=== PATIENT | male | born 1995 | race Two or more races ===

== ENCOUNTER 2017-01-15 10:17 | Emergency (ER) | payer OTHER ==
--- NOTE | 2017-01-15 11:16 | RAD ---
HISTORY: Fall, loss of consciousness, photophobia, hematoma COMPARISONS: None TECHNIQUE: Multiple contiguous axial CT scans were obtained of the head without intravenous contrast. FINDINGS: HEMORRHAGE/INFARCT: There is no hemorrhage or acute infarct. MASSES/SHIFT: There is no mass or shift. EXTRA-AXIAL SPACES: There are no extra-axial fluid collections. SULCI AND VENTRICLES: The sulci and ventricles are normal in size and position for the patient's stated age. CEREBRUM: There are no focal parenchymal abnormalities. BRAINSTEM: There are no focal parenchymal abnormalities. CEREBELLUM: There are no focal parenchymal abnormalities. VESSELS: The vessels are grossly normal. PARANASAL SINUSES: The paranasal sinuses are clear. ORBITS: The orbits are unremarkable. BONES AND SOFT TISSUE: No bone or soft tissue abnormalities are noted. OTHER: None IMPRESSION: NO ACUTE INTRACRANIAL PATHOLOGY.
[2017-01-15] MEDS ORDERED: Ondansetron ODT TAB* 4 MG PO ONE (11:41)
[2017-01-15] MEDS ORDERED: Acetaminophen TAB* 325 MG PO ONE (11:41)
--- NOTE | 2017-01-15 11:47 | ED ---
Head Injury - HPI Summary HPI Summary: Pt here w/ head injury - fell yesterday. Was still sleepy and got up to go to the bathroom - slipped on the floor and fell. Believes he lost concsciousness and he "woke up" and noticed his glasses were away from him on the floor. He noticed a bump on Rt side of SOLIS and developed a SOLIS w/ nausea. Laid down to rest which helped some but noticed the sound of the heater was making his SOLIS worse. Since, he's had SOLIS, worse w/ chewing, sound, light and trying to concentrate on reading. Nausea persists as well and is worse when SOLIS is worse. Vomited once yesterday. Also reports he's not sleeping well and has a labile mood -feels depressed and cries out of no where. He has a busy week coming up for school and is concerned about studying, etc. Denies slurred speech, numbness, tingling , weakness, balance issue. - History Of Current Complaint Chief Complaint: EDHeadInjury Stated Complaint: FALL HIT HEAD YESTERDAY Time Seen by Provider: 01/15/17 10:56 Hx Obtained From: Patient Pain Intensity: 6 PMH/Surg Hx/FS Hx/Imm Hx Previously Healthy: Yes Endocrine/Hematology History: Denies: Hx Anticoagulant Therapy, Hx Blood Disorders Infectious Disease History: No Infectious Disease History: Denies: Traveled Outside the [place] in Last 30 Days - Social History Occupation: Student Lives: Alone Alcohol Use: Occasionally Hx Substance Use: No Substance Use Type: Reports: None Hx Tobacco Use: Yes Smoking Status (MU): Current Every Day Smoker Amount Used/How Often: 1 PPD Review of Systems Negative: Fever, Chills, Fatigue Positive: Photophobia. Negative: Blurred Vision, Diplopia Negative: Epistaxis, Sore Throat, Ear Ache, Nasal Discharge Negative: Chest Pain Negative: Shortness Of Breath Gastrointestinal: Other - see HPI Positive: Vomiting, Nausea. Negative: Abdominal Pain, Diarrhea Positive: no symptoms reported Negative: Arthralgia, Myalgia Skin: Other - hematoma Rt side of head Positive: Headache - see HPI Psychological: Other - see HPI All Other Systems Reviewed And Are Negative: Yes Physical Exam Triage Information Reviewed: Yes Vital Signs On Initial Exam: Initial Vitals Temp Pulse Resp BP Pulse Ox 98.0 F 83 18 145/82 100 01/15/17 10:23 01/15/17 10:23 01/15/17 10:23 01/15/17 10:23 01/15/17 10:23 Vital Signs Reviewed: Yes Appearance: Positive: Well-Appearing - tearful toward end of exam, Well- Nourished, Pain Distress - mild Skin: Positive: Warm, Dry - well defined lump Rt parietal region - TTP - no overlying erythema, echymosis - no laceration Head/Face: Positive: Other - see above Eyes: Positive: Normal, EOMI, AMANDA - photophobia, Conjunctiva Clear ENT: Positive: Normal ENT inspection, Hearing grossly normal, Pharynx normal, TMs normal - no hemotympanum. Negative: Nasal congestion, Nasal drainage Dental: Negative: Dental Fracture @ Neck: Positive: Supple, Nontender Respiratory/Lung Sounds: Positive: Clear to Auscultation, Breath Sounds Present Cardiovascular: Positive: Normal, RRR, Pulses are Symmetrical in both Upper and Lower Extremities Abdomen Description: Positive: Nontender, Soft Bowel Sounds: Positive: Present Musculoskeletal: Positive: Normal, Strength/ROM Intact Neurological: Positive: Normal, Sensory/Motor Intact, Alert, Oriented to Person Place, Time, CN Intact II-III, Finger to Nose, Facial Symmetry, Speech Normal. Negative: Slurred Speech, Pronator Drift Present Psychiatric: Positive: Other - labile mood - [place] Coma Scale Coma Scale Total: 15 Diagnostics - Vital Signs Vital Signs Temp Pulse Resp BP Pulse Ox 01/15/17 10:47 98 F 83 18 145/82 98 01/15/17 10:23 98.0 F 83 18 145/82 100 - Laboratory Lab Statement: Any lab studies that have been ordered have been reviewed, and results considered in the medical decision making process. Head Injury Course/Dx - Diagnoses Provider Diagnoses: Concussion Discharge - Discharge Plan Condition: Stable Disposition: HOME Prescriptions: Ondansetron ODT TAB* [Zofran 4 MG Odt TAB*] 4 mg PO Q8H PRN #9 tab.odt PRN Reason: Nausea Patient Education Materials: Concussion (ED) Referrals: [facility] RHONDA Chowdhury [Primary Care Provider] - Additional Instructions: You have a concussion. It is important that you rest and avoid cognitive (ie. reading, looking at computers screens, focusing on tasks, etc) and physical activity (ie. exercise, etc) until this heals. Follow-up with [facility] tomorrow for monitoring schedule and return to routine activities when appropriate and cleared by [facility] provider.
[2017-01-15 11:50] VITALS: BP 158/72
== END 2017-01-15 11:48 | disposition home or self-care (01) ==
LOC: ED 10:17
DX: S06.0X9A Concussion with loss of consciousness of unspecified duration, initial encounter (principal); W01.0XXA Fall on same level from slipping, tripping and stumbling without subsequent striking against object, initial encounter; Y92.9 Unspecified place or not applicable; F17.210 Nicotine dependence, cigarettes, uncomplicated
CPT/HCPCS: 70450; 99282; A9270-GY

== ENCOUNTER → 2019-01-15 15:45 | Emergency (ER) | payer OTHER ==
[~2019-01-15 15:45] MED LIST: Cyanocobalamin INJ * 1,000 MCG/ML VIAL 1 ML VIAL IM ONE; Gadoteridol* (CONTRAST) 279.3 MG/ML 10 ML IV ONE
--- NOTE | 2019-01-15 16:30 | ED ---
Neurological HPI - HPI Summary HPI Summary: A 23 y/o male brought in by [facility] ambulance presents to [facility] with a chief complaint of numbness in his hands and feet, getting progressively worse over the past week. He claims that the numbness is on the surface of his hands and does not go up his arms, but numbness in his feet goes up his legs. He denies cough, pain in neck or headache. He reports that he had some congestion earlier in the week. At triage he rated his pain as a 0/10 in severity. He also notes that he feels like he can fall down when he stands up and loses his balance when walking. He claims that typing and writing feels weird. He denies any PMHx , SHx or taking any medications. He notes that he travelled to [facility] for a week in the beginning of December. - History of Current Complaint Chief Complaint: EDNeurologicalDeficit Stated Complaint: NUMBNESS IN EXTEMITIES PER EMS Time Seen by Provider: 01/15/19 16:21 Hx Obtained From: Patient Onset/Duration: Sudden Onset, Started days ago, Still Present Timing: Constant Onset Severity: Mild Current Severity: Mild Pain Intensity: 0 Pain Scale Used: 0-10 Numeric Character: Numbness/Tingling Aggravating: Nothing Alleviating: Nothing Associated Signs and Symptoms: Negative: Headache, Fever - Allergy/Home Medications Allergies/Adverse Reactions: Allergies Allergy/AdvReac Type Severity Reaction Status Date / Time No Known Allergies Allergy Verified 01/15/17 11:45 Home Medications: Home Medications NK [No Home Medications Reported] 01/15/19 [History Confirmed 01/15/19] PMH/Surg Hx/FS Hx/Imm Hx Endocrine/Hematology History: Denies: Hx Anticoagulant Therapy, Hx Blood Disorders, Hx Diabetes Cardiovascular History: Denies: Hx Hypertension, Hx Pacemaker/ICD Sensory History: Denies: Hx Hearing Aid Psychiatric History: Denies: Hx Panic Disorder - Surgical History Surgery Procedure, Year, and Place: right foot in 2011 Infectious Disease History: No Infectious Disease History: Reports: Traveled Outside the in Last 30 Days - [facility] - Family History Known Family History: Negative: Blood Disorder - Social History Alcohol Use: Occasionally Hx Substance Use: No Substance Use Type: Reports: None Hx Tobacco Use: Yes Smoking Status (MU): Current Some Day Smoker Amount Used/How Often: 1 PPD Review of Systems Negative: Fever Negative: Cough Positive: Other - negative: neck pain Positive: Numbness. Negative: Headache All Other Systems Reviewed And Are Negative: Yes Physical Exam - Summary Physical Exam Summary: Appearance: The patient is well-nourished in no acute distress and in no acute pain. Skin: The skin is warm and dry and skin color reflects adequate perfusion. HEENT: The head is normocephalic and atraumatic. The pupils are equal and reactive. The conjunctivae are clear and without drainage. Nares are patent and without drainage. Mouth reveals moist mucous membranes and the throat is without erythema and exudate. The external ears are intact. The ear canals are patent and without drainage. The tympanic membranes are intact. Neck: The neck is supple with full range of motion and non-tender. There are no carotid bruits. There is no neck vein distension. Respiratory: Chest is non-tender. Lungs are clear to auscultation and breath sounds are symmetrical and equal. Cardiovascular: Heart is regular rate and rhythm. There is no murmur or rub auscultated. There is no peripheral edema and pulses are symmetrical and equal. Abdomen: The abdomen is soft and non-tender. There are normal bowel sounds heard in all four quadrants and there is no organomegaly palpated. Musculoskeletal: There is no back tenderness noted. Extremities are non-tender with full range of motion. There is good capillary refill. There is no peripheral edema or calf tenderness elicited. Neurological: Patient is alert and oriented to person, place and time. The patient has symmetrical motor strength in all four extremities. Cranial nerves are grossly intact. Deep tendon reflexes are symmetrical and equal in all four extremities. Psychiatric: The patient has an appropriate affect and does not exhibit any anxiety or depression. Triage Information Reviewed: Yes Vital Signs On Initial Exam: Initial Vitals Temp Pulse Resp BP Pulse Ox 97.5 F 79 18 140/63 100 01/15/19 15:47 01/15/19 15:47 01/15/19 15:47 01/15/19 15:47 01/15/19 15:47 Vital Signs Reviewed: Yes Diagnostics - Vital Signs Vital Signs Temp Pulse Resp BP Pulse Ox 01/15/19 15:47 97.5 F 79 18 140/63 100 - Laboratory Result Diagrams: 01/15/19 17:00 01/15/19 17:00 Lab Statement: Any lab studies that have been ordered have been reviewed, and results considered in the medical decision making process. Course/Dx - Course Course Of Treatment: Mr. Blevins presented with a worrisome symptoms of numbness and tingling of his hands and feet. It's worsened gradually over the last week to the point where he is losing his balance presumably secondary to decreased sensation. His exam was unremarkable here and I consult with Dr. Ohara who came to the department and evaluated the patient. He recommends MRI which is pending at this time. - Diagnoses Provider Diagnoses: Paresthesia - Physician Notifications Discussed Care Of Patient With: Roshan Ohara Time Discussed With Above Provider: 16:55 Instructed by Provider To: Other - Recommends cervical spine MRI and follow up as an out patient Discharge - Sign-Out/Discharge Documenting (check all that apply): Sign-Out Patient Signing out patient TO: Kaylin Rivera Patient Received Moderate/Deep Sedation with Procedure: No - Discharge Plan Condition: Stable Referrals: [facility] [Primary Care Provider] - - Billing Disposition and Condition Condition: STABLE - Attestation Statements Document Initiated by Scribe: Yes Documenting Scribe: Christian Quinn Provider For Whom Scribe is Documenting (Include Credential): Preston Martin MD Scribe Attestation: I, Christian Quinn, scribed for Preston Martin MD on 01/15/19 at 1824. Scribe Documentation Reviewed: Yes Provider Attestation: The documentation as recorded by the Christian edmond accurately reflects the service I personally performed and the decisions made by me, Preston Martin MD Status of Scribe Document: Viewed
[2019-01-15 17:09] LABS: ABS Basophils 0.1 10^3/ul (0-0.2); ABS Eosinophils 0.1 10^3/ul (0-0.6); ABS Lymphocytes 1.8 10^3/ul (1.0-4.8); ABS Monocytes 0.4 10^3/ul (0-0.8); ABS Neutrophils 7.3 10^3/ul (1.5-7.7); ABS Nucleated RBC 0 10^3/ul; Eosinophil % 0.5 %; Hematocrit 43 % (36-46); Hemoglobin 14.7 g/dL (14.0-18.0); Lymphocyte % 18.8 %; Mean Corpuscular HGB Conc 34 g/dL (31-36); Mean Corpuscular Hemoglobin 31 pg (27-31); Mean Corpuscular Volume 92 fL (80-94); Mean Platelet Volume 7.3 fL (7.4-10.4); Nucleated Red Blood Cells % 0.1; Platelet Count 280 10^3/uL (150-450); Red Cell Distribution Width 14 % (10.5-15); White Blood Count 9.7 10^3/uL (3.5-10.8)
[2019-01-15 17:26] LABS: Albumin 5.2 g/dL (3.2-5.2); Albumin/Globulin Ratio 1.8 (1-3); BUN/Creatinine Ratio 20.5 (8-20); C Reactive Protein 1.65 mg/L (<8.01); Calcium 9.8 mg/dL (8.6-10.3); EGFR African American 146.7 (>60); EGFR Non-African American 121.3 (>60); Globulin 2.9 g/dL (2-4); Potassium 3.6 mmol/L (3.5-5.0); Total Bilirubin 0.8 mg/dL (0.2-1.0); Total Protein 8.1 g/dL (6.4-8.9)
[2019-01-15 18:31] LABS: Erythrocyte Sed Rate 15 mm/Hr (0-14)
--- NOTE | 2019-01-15 19:10 | ED ---
Progress - Progress Note Progress Note: Patient was signed out from Dr. Preston Martin to Dr. Kaylin Rivera during the 19: 00, 01/15/19 shift change. Patient is pending a c-spine MRI. Course/Dx - Course Course Of Treatment: Mr. Blevins presented with a worrisome symptoms of numbness and tingling of his hands and feet. It's worsened gradually over the last week to the point where he is losing his balance presumably secondary to decreased sensation. His exam was unremarkable here and I consult with Dr. Ohara who came to the department and evaluated the patient. He recommends MRI which is pending at this time. I did review the MRI result and spoke to Dr. Ohara, who recommended an injection of B12. Pt can go home and should call Dr. Ohara' s office tomorrow for an appointment. He will be d/c with a dx of neuropathy. - Diagnoses Provider Diagnoses: Neuropathy - Provider Notifications Discussed Care Of Patient With: Roshan Ohara - Neurology Time Discussed With Above Provider: 21:57 Instructed by Provider To: Have Pt Call For Appt. - Give injection of B12. Have patient call tomorrow for an appointment. Discharge - Sign-Out/Discharge Documenting (check all that apply): Patient Departure - D/C, Receiving Sign-Out Receiving patient FROM: Preston Martin - Pending a c-spine MRI. Patient Received Moderate/Deep Sedation with Procedure: No - Discharge Plan Condition: Stable Disposition: HOME Patient Education Materials: Peripheral Neuropathy (ED) Referrals: [facility] [Primary Care Provider] - 3 Days Roshan Ohara MD [Medical Doctor] - 1 Day Additional Instructions: Call Dr. Ohara tomorrow for an appointment. Follow up with your PCP in 3 days. PLEASE RETURN TO THE ED IMMEDIATELY FOR WORSENING OR CONCERNING SYMPTOMS. - Billing Disposition and Condition Condition: STABLE Disposition: Home - Attestation Statements Document Initiated by Diamante: Yes Documenting Scribe: Gabriele Moreno Provider For Whom Diamante is Documenting (Include Credential): Kaylin Rivera MD Scribandreina Attestation: Gabriele Dueñas scribed for Kaylin Rivera MD on 01/16/19 at 0551. Scribe Documentation Reviewed: Yes Provider Attestation: The documentation as recorded by the Gabriele edmond accurately reflects the service I personally performed and the decisions made by me, Kaylin Rivera MD Status of Scribe Document: Viewed Diagnostics - Vital Signs Vital Signs Temp Pulse Resp BP Pulse Ox 01/15/19 22:12 98.2 F 88 16 166/93 97 01/15/19 19:17 99.3 F 79 16 131/75 01/15/19 15:47 97.5 F 79 18 140/63 100 - Laboratory Lab Results: Lab Results 01/15/19 01/15/19 Range/Units 17:00 17:00 WBC 9.7 (3.5-10.8) 10^3/uL RBC 4.70 (4.18-5.48) 10^6 /uL Hgb 14.7 (14.0-18.0) g/dL Hct 43 (36-46) % MCV 92 (80-94) fL MCH 31 (27-31) pg MCHC 34 (31-36) g/dL RDW 14 (10.5-15) % Plt Count 280 (150-450) 10^3/uL MPV 7.3 L (7.4-10.4) fL Neut % (Auto) 75.6 % Lymph % (Auto) 18.8 % Robeson % (Auto) 4.4 % Eos % (Auto) 0.5 % Baso % (Auto) 0.7 % Absolute Neuts (auto) 7.3 (1.5-7.7) 10^3/ul Absolute Lymphs (auto) 1.8 (1.0-4.8) 10^3/ul Absolute Monos (auto) 0.4 (0-0.8) 10^3/ul Absolute Eos (auto) 0.1 (0-0.6) 10^3/ul Absolute Basos (auto) 0.1 (0-0.2) 10^3/ul Absolute Nucleated RBC 0 10^3/ul Nucleated RBC % 0.1 ESR 15 H (0-14) mm/Hr Sodium 140 (135-145) mmol/L Potassium 3.6 (3.5-5.0) mmol/L Chloride 106 (101-111) mmol/L Carbon Dioxide 26 (22-32) mmol/L Anion Gap 8 (2-11) mmol/L BUN 16 (6-24) mg/dL Creatinine 0.78 (0.67-1.17) mg/dL Est GFR ( Amer) 146.7 (>60) Est GFR (Non-Af Amer) 121.3 (>60) BUN/Creatinine Ratio 20.5 H (8-20) Glucose 88 (70-100) mg/dL Calcium 9.8 (8.6-10.3) mg/dL Total Bilirubin 0.80 (0.2-1.0) mg/dL AST 20 (13-39) U/L ALT 37 (7-52) U/L Alkaline Phosphatase 42 (34-104) U/L C-Reactive Protein 1.65 (<8.01) mg/L Total Protein 8.1 (6.4-8.9) g/dL Albumin 5.2 (3.2-5.2) g/dL Globulin 2.9 (2-4) g/dL Albumin/Globulin Ratio 1.8 (1-3) Vitamin B12 208 (180-914) pg/mL Result Diagrams: 01/15/19 17:00 01/15/19 17:00 Lab Statement: Any lab studies that have been ordered have been reviewed, and results considered in the medical decision making process. - Radiology Cervical Spine MRI Radiology Interpretation Completed By: Radiologist Summary of Radiographic Findings: 21:08. Normal pre-and post contrast cervical spine MRI. ED Physician has reviewed this imaging report.
--- NOTE | 2019-01-15 21:23 | CONS ---
NEUROLOGY CONSULTATION: DATE OF CONSULT: 01/15/19 - EMERGENCY DEPT REFERRING PHYSICIAN: Dr. Martin. LOCATION: He is in the emergency room. CHIEF COMPLAINT: Numbness. HISTORY OF PRESENT ILLNESS: Kaveh Blevins is a 23-year-old man who just about 7 days ago noted a sense of numbness and tingling of his hands and his lower extremities. It seem to be recognized in all limbs around the same day. It goes up to his thighs. There was no progression, but he just noticed it and it has been there ever since. He feels he is somewhat unsteady on his feet and that brought him to the emergency room today. He has not had any falls. He has not noticed any change in vision, problems with numbness in his face, neck or back pain. He has not had any recent infections, fevers, or immunizations. He had traveled to [facility] about a week before symptoms started. He was not sick during his travels. He has not noticed any skin rashes, bug bites, and he has not had any head or spine trauma. He has not had any gastrointestinal problems. His weight has been stable for months. He does not take any medications on a regular basis. He eats a regular diet, he is not a vegetarian. He does not take vitamins. PAST MEDICAL HISTORY: Notable for an emergency room visit where he fell and hit his head 2 years ago. He had a MRI scan of his brain and CT scan of his brain, all of which were normal. According to the emergency room records, he reported feeling depressed at that time. MEDICATIONS: He is not on any medications at home. He does not take any supplements. FAMILY HISTORY: Noncontributory. SOCIAL HISTORY: He is a nonsmoker, does not drink alcohol regularly. REVIEW OF SYSTEMS: Negative for cardiac, pulmonary, renal, GI, , rheumatological, or endocrine disorders. He has not had any recent fevers or change in weight. PHYSICAL EXAM: He is a muscular 23-year-old gentleman who looks well hydrated and well nourished. Temperature is 97.5, blood pressure 140/63, heart rate in the 70s and regular, respiratory rate is 18 and oxygen saturation is 100% on room air. Skin is warm and dry. He has multiple tattoos. Lungs are clear. Heart is in a regular rhythm without murmurs. There are no cervical bruits. Neurological Exam: Pupils react equally from 5 down to 2.5 mm. Eye movements are normal. Funduscopic exam is normal bilaterally. There is no afferent pupillary defect. Visual bridges are full to confrontation. Facial musculature is intact and symmetric. Facial sensation to light touch is symmetric. Palate and tongue appear normal and speech is clear without dysarthria. Motor exam reveals normal muscle tone and excellent bulk throughout. He may have some mild ankle dorsiflexor weakness with attempted heel walk, but other than that he has good resistive strength. He may have some mild dorsal interossei weakness in the left hand. Other than that he is quite strong. Sensory exam is intact to light touch in the distal upper and lower extremities. Proprioception appears impaired in the great toes bilaterally. Vibration sense is absent up to the knees. He has normal vibratory sense in the fingertips. A pin discrimination is inconsistent. It is intact in his upper extremities, but the lower extremities is variable levels that I cannot get a consistent pattern too. Romberg sign is present. Reflexes are brisk and symmetric in the upper extremities and at the knees. They are absent at the ankles including with reinforcement. Plantar responses are flexor bilaterally. Finger tips are normal bilaterally. There is no rest or sustention tremor. Gait is wide based and cautious. He can walk on his toes, but he has difficulty walking on his heels because of downward drift of his ankle dorsiflexors. He is alert and oriented and a good detailed historian. Memory is intact and language is fluent. He has adequate attention, concentration, and fund of knowledge. DIAGNOSTIC STUDIES/LAB DATA: Laboratory data so far is not available. He had some blood test ordered, but nothing is back yet. Again, he had a MRI of the brain and CT scan in December 2016, both of which were interpreted as normal. IMPRESSION AND PLAN: Impression is that of a possible subacute neuropathy. Less likely would be a myelitis. He did not have any immune-stimulating event such as infections or vaccinations. I think he should get an MRI of his cervical spine with and without contrast. He should get routine blood work as well as a vitamin B12 level. His symptoms have been stable for 7 days by his report and he is not particularly weak, so he may not need to be admitted. If he does have normal imaging of a spine and lab work and he is safe to discharge. I could see him in my office in followup and arrange for electrodiagnostic studies. I have discussed my impression with Dr. Martin. [id number]/[facility] #: [id number] MANN
[2019-01-15 22:14] VITALS: BP 166/93
== END | disposition home or self-care (01) ==
LOC: ED 15:45
DX: R20.2 Paresthesia of skin (principal); G62.9 Polyneuropathy, unspecified; Z72.0 Tobacco use
CPT/HCPCS: 36415; 72156; 80053; 82607; 85025; 85652; 86140; 96372; 99282; A9579; J3420

== ENCOUNTER → 2019-01-29 16:40 | Emergency (ER) | payer OTHER ==
[~2019-01-29 16:40] MED LIST changes: -Cyanocobalamin INJ * 1,000 MCG/ML VIAL 1 ML VIAL IM ONE; -Gadoteridol* (CONTRAST) 279.3 MG/ML 10 ML IV ONE; +Lidocaine 1% INJ* 10 MG/ML 30 ML SDV INJ ONE; +Lidocaine 1%* 5 ML VIAL ONE
--- OUTSIDE RECORDS SUMMARY | 2019-01-29 17:00 | XMS REPORT | Continuity of Care Document ---
:1995 External Reference #:[id number] Author Name Oliva Gr Care Team Providers Name Role Phone [facility] Primary Care Physician Unavailable Payers Date Identification Numbers Payment Provider Subscriber Policy Number: [id number] [employer] Student [employer] Kaveh Blevins PayID: [id number] [address] [place] [address] Advance Directives Description No Information Available Problems Description No Information Family History Description No Information Available Social History Type Date Description Comments Sex Unknown ETOH Use Rarely consumes alcohol Tobacco Use Start: Unknown Light tobacco smoker (10 or fewer cigarettes/day) Smoking Status Reviewed: 01/22/19 Light tobacco smoker (10 or fewer cigarettes/day) Allergies, Adverse Reactions, Alerts Description No Known Drug Allergies Medications Active Medications SIG Qnty Indications Ordering Date Provider Cyanocobalamin inject 1 4units G62.9 Roshan SJames 01/22/2019 1000mcg/ML milliliters once a Tramaine Ohara Solution weekly for 4 weeks then once a month History Medications No Active Medications Unknown 01/22/2019 - 01/22/2019 Immunizations Description No Information Available Vital Signs Date Vital Result Comment 01/22/2019 10:08am Height 73 inches 6'1" Weight 240.00 lb Heart Rate 90 /min BP Systolic 124 mmHg BP Diastolic 84 mmHg BMI (Body Mass Index) 31.7 kg/m2 Results Description No Information Available Procedures Description No Information Available Encounters Description No Information Available Plan of Treatment 01/22/2019 - Kt Weston NPG62.9 Polyneuropathy, unspecifiedNew Medication: Cyanocobalamin 1000 mcg/ML - inject 1 milliliters once a weekly for 4 weeks then once a monthNew Orders:EMG w/Nerve Conduct Study, Lower, Ordered: Follow up:2-3 WEEKS with Kt. Please obtain most recent blood work results from [facility] drawn over the last week.
--- NOTE | 2019-01-29 17:55 | ED ---
Neurological HPI - HPI Summary HPI Summary: Pt is a 23 y/o male who presents to the ED c/o numbness. He was here on 01/15/19 for paresthesia and numbness of his bilateral legs, feet, and hands. Pt was given a B12 injection and diagnosed with neuropathy, and was instructed to follow-up outpatient with neurology. He was sent here by Dr. Ohara for a lumbar puncture. Pts symptoms began several weeks ago and have been worsening. He denies any drug use, including nitrous oxide. - History of Current Complaint Chief Complaint: EDNeurologicalDeficit Stated Complaint: TEST FOR NEUROPATHY PER PT Time Seen by Provider: 01/29/19 17:43 Hx Obtained From: Patient, Medical Records Onset/Duration: Gradual Onset, Started weeks ago - 2-3, Still Present Timing: Constant Current Severity: None Neurological Deficit Location: RUE, LUE, RLE, LLE Pain Intensity: 0 Pain Scale Used: 0-10 Numeric Character: Numbness/Tingling, Paresthesia Aggravating: Nothing Alleviating: Nothing - Allergy/Home Medications Allergies/Adverse Reactions: Allergies Allergy/AdvReac Type Severity Reaction Status Date / Time No Known Allergies Allergy Verified 01/21/19 10:52 PMH/Surg Hx/FS Hx/Imm Hx Endocrine/Hematology History: Denies: Hx Anticoagulant Therapy, Hx Blood Disorders, Hx Diabetes Cardiovascular History: Denies: Hx Hypertension, Hx Pacemaker/ICD History: Denies: Hx Renal Disease Sensory History: Denies: Hx Hearing Aid Psychiatric History: Denies: Hx Panic Disorder - Surgical History Surgery Procedure, Year, and Place: right foot in 2011 Infectious Disease History: No Infectious Disease History: Reports: Traveled Outside the [place] in Last 30 Days - [facility] - Family History Known Family History: Negative: Blood Disorder - Social History Alcohol Use: Occasionally Hx Substance Use: No Substance Use Type: Reports: None Hx Tobacco Use: Yes Smoking Status (MU): Current Some Day Smoker Amount Used/How Often: 1 PPD Review of Systems Negative: Fever Positive: Paresthesia - feet, hands, legs, Numbness - feet, hands, legs All Other Systems Reviewed And Are Negative: Yes Physical Exam - Summary Physical Exam Summary: Appearance: well appearing, no pain distress Skin: warm, dry, reflects adequate perfusion Head/face: normal Eyes: EOMI, AMANDA ENT: mucous membranes moist Neck: supple, non-tender Respiratory: CTA, breath sounds present Cardiovascular: RRR, pulses symmetrical Abdomen: non-tender, soft Bowel Sounds: present Musculoskeletal: normal, strength/ROM intact Neuro: normal, sensory motor intact, A&Ox3, normal reflexes, decreased sensation of lower legs, feet, and hands Triage Information Reviewed: Yes Vital Signs On Initial Exam: Initial Vitals Temp Pulse Resp BP Pulse Ox 98.4 F 89 16 118/97 97 01/29/19 16:47 01/29/19 16:47 01/29/19 16:47 01/29/19 16:47 01/29/19 16:47 Vital Signs Reviewed: Yes Procedures - Lumbar Puncture 1 Position: Lateral Decubitus Aseptic Technique: Local Anesthesia, Lidocaine Anesthesia Used: 1.0% Lido - 10cc Spinal Needle Used: 22 Gauge - 3 attempts made due to difficult access. Clean puncture obtained, 3 tubes of 1 cc each clear fluid Lumbar Puncture Note: Patient tolerated the procedure well despite having a convert from sitting to lying and 3 total attempts. Diagnostics - Vital Signs Vital Signs Temp Pulse Resp BP Pulse Ox 01/29/19 16:47 98.4 F 89 16 118/97 97 - Laboratory Lab Statement: Any lab studies that have been ordered have been reviewed, and results considered in the medical decision making process. Course/Dx - Course Course Of Treatment: Patient has known peripheral neuropathy, walks with a cane and known B12 deficiency. Neurology sent him here to be seen by the on-call neurologist who had left for the day. They wished for him to have a lumbar puncture which was performed by us. They're most interested in seeing his protein. They suggest that he can have the lumbar puncture and be discharged with them following up on these laboratories. He'll call Dr. Ohara tomorrow to follow-up on his lab results. - Differential Dx Differential Diagnoses Neuro: Positive: Other - Guyon weller, peripheral demyelinating disorder, Lyme, B12 neuropathy - Diagnoses Provider Diagnoses: Peripheral neuropathy, B12 deficiency - Physician Notifications Discussed Care Of Patient With: Daniela Tubbs Time Discussed With Above Provider: 17:45 Instructed by Provider To: Other - Dr. Tubbs wants a lumbar puncture and to check blood protein levels. Discharge - Sign-Out/Discharge Documenting (check all that apply): Patient Departure - Discharge Patient Received Moderate/Deep Sedation with Procedure: No - Discharge Plan Condition: Improved Disposition: HOME Patient Education Materials: Peripheral Neuropathy (ED) Referrals: [facility] - Lewis SMITH [Primary Care Provider] - Roshan Ohara MD [Medical Doctor] - Additional Instructions: Follow-up with Dr. Ohara for test results. Return if worse, new symptoms or other concerns. Drink lots of fluids tonight. Avoid alcohol. - Billing Disposition and Condition Condition: IMPROVED Disposition: Home - Attestation Statements Document Initiated by Scribe: Yes Documenting Scribe: Cass Plummer Provider For Whom Diamante is Documenting (Include Credential): Favian Olmstead MD Scribe Attestation: Cass Dueñas, scribed for Favian Olmstead MD on 01/29/19 at 1910. Scribe Documentation Reviewed: Yes Provider Attestation: The documentation as recorded by the scribeCass accurately reflects the service I personally performed and the decisions made by me, Favian Olmstead MD Status of Scribe Document: Viewed
[2019-01-29 19:00] LABS: Body Fluid Source Cerebral Spinal
[2019-01-29 19:11] VITALS: BP 126/85
[2019-01-29 19:14] LABS: CSF Glucose 60 mg/dL (40-70)
[2019-01-29 20:07] LABS: Body Fluid Mono 2 %
== END | disposition home or self-care (01) ==
LOC: ED 16:40
DX: G62.9 Polyneuropathy, unspecified (principal); E53.8 Deficiency of other specified B group vitamins; Z72.0 Tobacco use
CPT/HCPCS: 36415; 62270; 82945; 84157; 87070; 87205; 89051; 99282